=== PATIENT | male | born 1960 | race Caucasian/White ===

== ENCOUNTER 2019-12-25 09:55 | Observation (INO) ==
--- NOTE | 2019-12-25 10:13 | PROVIDER DOCUMENTATION ---
HPI-General Adult - General Chief Complaint: Weakness Stated Complaint: STROKE LIKE SYMTOMS Time Seen by Provider: 12/25/19 10:10 Source: patient, family Allergies/Adverse Reactions: Patient Allergies Allergy/AdvReac Type Severity Reaction Status Date / Time No Known Allergies Allergy Verified 12/25/19 10:41 Home Medications: Home Medication List Medication Instructions Recorded Confirmed Last Taken Type NK [No Home Medications] 12/25/19 12/25/19 Unknown History - History of Present Illness -Gen Adult Nature of Presenting Problems: 59yo male presents with CC of left sided non radiating chest pressure that has been going on since 5am this morning. The patient reports that the pain is not worse with exertion or deep breathing, and that the pain was associated with nausea. Originally the pt was sent by outside nurse for concerns of stroke like symptoms with HTN, weakness, and facial twitching, however the patient denies any focal weakness, vision changes, or slurred speech, and his main concern is his chest pain. The patient denies fevers or other pain. Review of Systems - Adult - REVIEW OF SYSTEMS - ADULT Constitutional: reports: no symptoms reported. denies: fever Eyes: reports: no symptoms reported. denies: blurred vision, eye pain Ears, Nose, Mouth & Throat: reports: no symptoms reported. denies: throat pain Cardiovascular: reports: chest pain Respiratory: reports: shortness of breath Gastrointestinal: reports: nausea Genitourinary: reports: no symptoms reported. denies: flank pain Musculoskeletal: reports: no symptoms reported. denies: back pain Integumentary: reports: no symptoms reported Neurological: reports: no symptoms reported. denies: headache/migraines, numbness Psychiatric: reports: no symptoms reported Endocrine: reports: no symptoms reported Hematologic/Lymphatic: reports: no symptoms reported, other (no bleeding) Allergic/Immunologic: reports: no symptoms reported, other (no swelling) Past History - Adult - PAST MEDICAL HISTORY-ADULT Review of Records: reports: Old Records Reviewed Cardiovascular: reports: denies history Respiratory: reports: denies history Gastrointestinal: reports: denies history Genitourinary: reports: denies history Musculoskeletal: reports: denies history Neurological: reports: denies history Psychiatric: reports: denies history Endocrine/Immune: reports: denies history - FAMILY HISTORY Family History: other ([place]) - SOCIAL HISTORY Smoking: cigarettes Substance Use: none/never Alcohol Use Frequency: never Physical Exam-General - CONSTITUTIONAL General Appearance: alert, mild distress - EYES Eyes: PERRL/EOMI. negative: conjuctival exudate, photophobia, scleral icterus - HEAD, EARS, NOSE, MOUTH & THROAT HENMT: normocephalic/atraumatic, moist mucous membranes, pharynx normal - NECK Neck: non-tender, supple - RESPIRATORY Respiratory: normal breath sounds, no respiratory distress - CARDIOVASCULAR Cardiovascular: regular rate, rhythm, no edema - GASTROINTESTINAL (ABDOMEN) Abdominal Exam: non tender, soft - MUSCULOSKELETAL Extremity: non-tender. negative: deformity, swelling - SKIN Integumentary: normal color, warm/dry. negative: cyanosis, diaphoresis, jaundice, pallor - NEUROLOGIC Neurologic: staffing account manager II-XII nml as tested. negative: motor weakness, sensory deficit - PSYCHIATRIC Psych/Mental Status: normal mood/affect, normal thought content, normal thought process Progress - PLAN OF CARE/RESULTS Progress/Plan/Lab Results: Vital Signs - 8 hr 12/25/19 10:00 Temperature 97.8 F Pulse Rate 85 Respiratory Rate 20 Blood Pressure 149/93 O2 Sat by Pulse Oximetry 98 Laboratory Results - last 24 hr 12/25/19 10:01 POC Glucose 85 Orders Category Date Time Status CT HEAD W/O CONTRAST [CT] Stat Exams 12/25/19 10:05 Taken Result Diagrams: 12/25/19 10:27 12/25/19 10:27 - REASSESSMENT Reassessment #1 Status: other (Pt with some improvement in his chest pain with nitro. Given suspcious nature of the chest pain and risk factors of smoking and family hx of [facility] as well as pt being overweight, discussed with family option for inpt stay with stress testing and they were agreeable to this plan. Discussed with the hospitalist team who agreed to admit the patient. Discussed again with family that it was an option to get stress testing outpt, however after discussion they wanted to stay and have test sooner. Pt to be admitted to the hospitalist team.) - EKG 1 Time of EKG reading by physician:: 10:18 EKG Read and Signed by:: David Galloway EKG Interpretation (*Must complete 3 of following elements*): Normal Rate: 79 Rhythm: sinus [place]: normal QRS: normal NE Interval: normal ST Wave: normal Prior EKG Comparison: no prior EKG - XRAY 1 XRAY: Bilateral XRAY Study: Chest Impression: See EMR Report (Patient: LEEANNA HAYNES Date: 12/25/19MR#: [id number] : 1960ADM Status: REG ERAcct#: [id number] Age/Sex: 5 0/MRoom/Bed: Loc: ED Ordering Physician: David Galloway MD Family Physician: Chan Plaza MD Reason for Procedure: Chest pain Signed EXAM: CHEST-1 VIEW HISTORY: Chest pain TECHNIQUE: Single view COMPARISON: None. FINDINGS: The lungs are well expanded. The heart is not enlarged. The vessels are not distended. There are no infiltrates. No effusion identified. There is a granuloma in the left lung. IMPRESSION: Negative exam. Electronically signed by Mark Flores 12/25/2019 10:45 AM 12/25/19 104 Interpreting Physician: Mark Flores MD Dictated Date/Time: 12/25/19 1045 cc: David Galloway MD; Chan Plaza MD) - CT/MRI 1 CT Study: Head Impression: See EMR Report ( Patient: LEEANNA HAYNES Date: 12/25/19MR#: [id number] : 1960ADM Status: PRE ERAcct#: [id number] Age/Sex: 59/MRoom/Bed: Loc: ED Ordering Physician: Hadley Welch MD Family Physician: Chan Plaza MD Reason for Procedure: stroke like sx Signed EXAM: CT HEAD W/O CONTRAST HISTORY: stroke like sx TECHNIQUE: CT head without contrast COMPARISON: None. FINDINGS: No parenchymal hemorrhage. No epidural or subdural hematoma. No subarachnoid hemorrhage. No mass identified on this noncontrasted exam. No hydrocephalus. No sinus opacification. IMPRESSION: No hemorrhage. Negative brain CT without contrast. This exam was performed using automated exposure control, adjustment of mA or kV according to patient size, and/or use of iterative reconstruction technique. Electronically signed by Mark Flores 12/25/2019 10:21 AM 12/25/19 1021 Interpreting P clintonsician: Mark Flores MD Dictated Date/Time: 12/25/19 1020 cc: Hadley Welch MD; Chan Plaza MD) Departure - Departure Date of Disposition Decision: 12/25/19 Time of Disposition Decision: 14:38 DIAGNOSIS: Chest pain Qualifiers: Chest pain type: unspecified Qualified Code(s): R07.9 - Chest pain, unspecified Disposition: ADMITTED INPATIENT 09 Certified Medical Emergency: Emergent Condition: Fair - Critical Care Note This patient required my direct & personal management of CC.: No Attestation - Physician/ JOE Attestation Patient care was provided by Advanced Practice Provider:: No The physician spent face to face time with patient:: Yes Advanced Practice Provider documentation review:: Supervising physician onsite and consulted in the evaluation and care of this patient. The physician did have a face to face encounter with the patient. - HEART Score HEART Score: History: Highly Suspicious HEART Score: ECG: Normal HEART Score: Age: 45-65 Years HEART Score: Risk Factors for Atherosclerotic Disease: 1 or 2 Risk Factors HEART Score: Troponin: < or = Normal Limit Total HEART Score:: 4
--- NOTE | 2019-12-25 10:24 | Diag Imaging Result Doc PS360 ---
EXAM: CT HEAD W/O CONTRAST HISTORY: stroke like sx TECHNIQUE: CT head without contrast COMPARISON: None. FINDINGS: No parenchymal hemorrhage. No epidural or subdural hematoma. No subarachnoid hemorrhage. No mass identified on this noncontrasted exam. No hydrocephalus. No sinus opacification. IMPRESSION: No hemorrhage. Negative brain CT without contrast. This exam was performed using automated exposure control, adjustment of mA or kV according to patient size, and/or use of iterative reconstruction technique. Electronically signed by Mark Flores 12/25/2019 10:21 AM
[2019-12-25] MEDS ORDERED: ASPIRIN PO ONE (10:25)
[2019-12-25] MEDS ORDERED: NITROGLYCERIN TOP ONE (10:26)
--- NOTE | 2019-12-25 10:47 | Diag Imaging Result Doc PS360 ---
EXAM: CHEST-1 VIEW HISTORY: Chest pain TECHNIQUE: Single view COMPARISON: None. FINDINGS: The lungs are well expanded. The heart is not enlarged. The vessels are not distended. There are no infiltrates. No effusion identified. There is a granuloma in the left lung. IMPRESSION: Negative exam. Electronically signed by Mark Flores 12/25/2019 10:45 AM
[2019-12-25 11:00] LABS: BASO# 0.03 X1000 (0.0-0.2); BASO% 0.3 % (0.0-0.8); EOS# 0.09 X1000 (0.0-0.7); HEMATOCRIT 46.5 % (42.0-52.0); HEMOGLOBIN 15.6 g/dL (14.0-18.0); IMM GRAN# 0.02 X1000 (0.0-0.04); IMM GRAN% 0.2 % (0.0-0.5); LYMPH% 18.6 % (20.5-51.1); MCH 29.7 PG (27-31); MCHC 33.5 g/dL (33-37); MCV 88.6 FL (81-99); MONO# 0.48 X1000 (0.11-0.59); MONO% 5.6 % (1.7-9.3); MPV 9.9 FL (7.4-10.4); NEUT# 6.37 X1000 (1.4-6.5); NEUT% 74.3 % (42.2-75.2); PLT 272 X1000 (130-400); RBC 5.25 XMIL (4.7-6.1); WBC 8.59 X1000 (4.8-10.8)
[2019-12-25 11:16] LABS: PROTIME 13.3 Seconds (11.0-16.0)
[2019-12-25 11:17] LABS: AGAP 11; ALB/GLOB RATIO 1.7; ALKALINE PHOSPHATASE 56 U/L (32-122); BUN 13 mg/dL (8-22); CALCIUM 8.7 mg/dL (8.8-10.2); CHLORIDE 106 mmol/L (98-107); CK PROFILE 97 U/L (24-204); COSMO 282; ESTIMATED GFR > 60; GLUCOSE 105 mg/dL (70-104); GOT 14 U/L (10-34); GPT 11 U/L (10-44); PTT 31.2 Seconds (22.3-41.8); SODIUM 141 mmol/L (136-145); TCO2 24 mmol/L (25-35); TOTAL PROTEIN 6.3 g/dL (6.3-8.3)
--- NOTE | 2019-12-25 11:47 | EKG Report ---
Test Performed on : 12/25/2019 10:17:09 AM Test Reason : Chest pain Blood Pressure : / mmHG Vent. Rate : 079 BPM Atrial Rate : 079 BPM P-R Int : 170 ms QRS Dur : 088 ms QT Int : 364 ms P-R-T Axes : 070 000 034 degrees QTc Int : 417 ms Normal sinus rhythm. Normal ECG When compared with ECG of 17-APR-2011 06:20, No significant change was found Unconfirmed Result
[2019-12-25] MEDS ORDERED: ZOFRAN IV PRN (14:41)
[2019-12-25] MEDS ORDERED: TYLENOL PO PRN (14:41)
--- NOTE | 2019-12-25 15:14 | HISTORY AND PHYSICAL ---
PRIMARY CARE PHYSICIAN: Dr. Chan Quintero. CHIEF COMPLAINT: Chest pain and nausea. HISTORY OF PRESENTING ILLNESS: This is a 59-year-old male who presents to [facility] with complaints of chest pain, pressure type, with some associated nausea that began around 5:30 this morning while he was at work. He denied any radiation of the pain. States that he had a stress test done about 10 years ago at his primary care physician's office which was normal. Had an echocardiogram done about a year ago but does not know the results of that. He has no past medical history, but when he presented, his blood pressure was 149/93. He is a pack a day smoker. His workup showed 2 sets of cardiac enzymes were negative. EKG with normal sinus rhythm at 79. So he will be admitted under observation for further evaluation and treatment for a stress test. PAST MEDICAL HISTORY: None. PAST SURGICAL HISTORY: Tonsillectomy and a tooth removal for denture placement. FAMILY HISTORY: Positive for an DC. SOCIAL HISTORY: Currently lives with his . Smokes 1 pack of cigarettes a day and has done so for 40+ years. Denies any alcohol or illicit drug use. ALLERGIES: He has no known drug allergies. HOME MEDICATIONS: He does not take any medications on a routine basis. LABORATORY DATA: Showed a white blood cell count of 8.59, hemoglobin 15.6, hematocrit 46.5, platelets 272,000. PT and INR of 13.3 and 1.00. Sodium 141, potassium 4, chloride 106, CO2 24, BUN of 13, creatinine of 1, glucose 105. Cardiac enzymes were negative x2 sets. ProBNP of 109. EKG showed normal sinus rhythm at 79. Chest x-ray showed a negative exam. REVIEW OF SYSTEMS: He denied any fever, chills, blurred vision, dizziness. He had chest pain, nonradiating. Denied any shortness of breath, cough. He denied any abdominal pain. He did have some mild nausea. Denied any constipation, diarrhea, burning or hurting with urination. PHYSICAL EXAMINATION: VITAL SIGNS: On arrival he had a temperature of 97.8 degrees, pulse 85, respirations 20, blood pressure 149/93, saturating 98% on room air. GENERAL: This is a 59-year-old male who is lying in the bed and answers questions appropriately. HENT: Normocephalic, atraumatic. Normal ENT inspection. Oropharynx and nares are clear. EYES: Pupils are equal, round, reactive to light and accommodation. Extraocular movements are intact. NECK: Normal inspection. Normal range of motion. LUNGS: Clear to auscultation bilaterally with equal lung expansion and chest wall movement. HEART: With regular rate and rhythm. No murmurs, rubs, or gallops. ABDOMEN: Soft, nontender, nondistended. Bowel sounds are present x4 quadrants. MUSCULOSKELETAL: He had 5/5 strength x4 extremities. NEUROLOGICAL: The cranial nerves 2-12 appear grossly intact. ASSESSMENT: 1. Chest pain. 2. Elevated blood pressure without a diagnosis of hypertension. 3. Tobacco abuse. PLAN: He will be admitted to the medical unit, placed on telemetry, O2 per protocol, healthy heart diet. He will be n.p.o. after midnight. We will do a myocardial perfusion scan in the a.m. Check a lipid profile. Do 1 more set of cardiac enzymes to complete a series of 3. Give him a nicotine patch 21 mg transdermally daily, aspirin 325 mg p.o. daily, Lovenox 40 mg subcutaneous q.24 for DVT prophylaxis, Prilosec 20 mg p.o. daily. Further orders after seen by attending. Dictated by SALUD Johnson for Morris Prieto MD Addendum: Patient is seen and examined by myself. Agree with SALUD note. It reflects my assessment and plan. Patient is being admitted to hospital for chest pain. Workup under progress. Will follow results of Lexiscan. cc: SALUD Johnson MD Alexander Bryant McQueen MTDD
[2019-12-25] MEDS: LOVENOX SUBQ SCH (15:15)
[2019-12-25] MEDS: NICODERM PATCH TD SCH (15:15)
[2019-12-26] MEDS ORDERED: PRILOSEC PO SCH (07:00)
--- NOTE | 2019-12-26 07:36 | EKG Report ---
Test Performed on : 12/26/2019 07:23:37 AM Test Reason : Chest Pain Blood Pressure : / mmHG Vent. Rate : 055 BPM Atrial Rate : 055 BPM P-R Int : 190 ms QRS Dur : 092 ms QT Int : 418 ms P-R-T Axes : 055 034 045 degrees QTc Int : 399 ms Sinus bradycardia. Otherwise normal ECG When compared with ECG of 25-DEC-2019 10:17, (Unconfirmed) No significant change was found Confirmed by Ganesh Bolton MD ([id number]) on 12/26/2019 9:07:49 PM
[2019-12-26] MEDS ORDERED: LEXISCAN ONE (08:33)
[2019-12-26] MEDS ORDERED: ASPIRIN PO SCH (09:00)
[2019-12-26] MEDS: NICODERM PATCH TD SCH (10:52)
--- NOTE | 2019-12-26 13:47 | Diag Imaging Result Document ---
PROCEDURE NAME: MYOCARDIAL PERF SCAN, STR/REST - 12/26/2019 INDICATION: Chest pain. PROCEDURES PERFORMED: 1. Crow protocol stress. 2. One-day stress/rest myocardial perfusion imaging (rest dose 14.1 millicuries, stress dose 36.8 mCi). CROW PROTOCOL STRESS RESULTS: 1. Baseline EKG shows sinus rhythm. 2. Patient exercised for a total of 9 minutes 31 seconds, achieving peak heart rate of 142 which was 88% of age predicted max. He achieved 10.9 METS, early stage IV of the Crow protocol. Exercise capacity was 114% of age and sex-predicted exercise capacity. 3. Somewhat hypertensive response to exercise. 4. The test was terminated due to fatigue. 5. No anginal complaints occurred during the course of the study. 6. No evidence of ischemic-related EKG changes or significant arrhythmias occurred during the course of the study. PERFUSION IMAGING RESULTS: 1. No evidence of abnormal extracardiac uptake. 2. TID ratio 0.80. 3. Perfusion imaging demonstrates essentially no evidence of ischemic changes. There is some very mild inferior soft tissue attenuation artifact which appears to have intact wall motion. This appears to represent a low-risk study. 4. Normal ejection fraction of 63%. The end-diastolic volume is 94, end-systolic volume is 35. Normal wall motion. cc: MD [place] CRNP
[2019-12-26] MEDS: LOVENOX SUBQ SCH (14:16)
[2019-12-26 15:39] VITALS: BP 150/92
--- NOTE | 2019-12-26 16:11 | Diag Imaging Result Doc PS360 ---
EXAM: CT THORAX W/O CONTRAST INDICATION: chest pain TECHNIQUE: This exam was performed using automated exposure control, adjustment of mA or kV according to patient size, and/or use of iterative reconstruction technique. COMPARISON: None. FINDINGS: There is a calcified granuloma in the left lower lobe. There is a 3 mm pleural-based noncalcified nodule in the right middle lobe on image 71 of series 3 that statistically very likely represents a noncalcified granuloma. The lungs are clear, otherwise. No airspace consolidations are appreciated. There is no pleural fluid collection and no pneumothorax. There are calcified left hilar lymph nodes indicating prior granulomatous disease. There is no cardiomegaly. There is no evidence of significant lymphadenopathy. There are no abnormal mediastinal fluid collections. Limited views of the upper abdomen are essentially unremarkable. There is no evidence of acute osseous abnormality. IMPRESSION: No evidence of acute pathology by CT. Electronically signed by Viraj Aceves 12/26/2019 4:09 PM
--- NOTE | 2019-12-26 22:42 | DISCHARGE SUMMARY ---
ADMISSION DATE: 12/25/2019 DISCHARGE DATE: 12/26/2019 DISCHARGE DIAGNOSES: 1. Chest pain, resolved. 2. Acute coronary syndrome ruled out. 3. Elevated blood pressure. 4. Tobacco abuse. CONSULTATIONS: None. PROCEDURES: 1. Head CT done on admission showed no hemorrhage. Negative brain CT without contrast. 2. Chest x-ray was negative. 3. Myocardial perfusion scan, nuclear medicine, showed perfusion imaging demonstrated essentially no evidence of ischemic changes. Some very mild inferior soft tissue attenuation artifact which appears to have an intact wall motion. This appears to represent low risk study with normal ejection fraction of 63% 4. Chest CT showed no evidence of acute pathology by CT. HOSPITAL COURSE: This is a 59-year-old male, who presented to the emergency department complaining of chest pain, pressure type with some associated nausea that began around 5:30 on the date of admission. The patient reports that he had a stress test done 10 years ago. Patient has only family history of coronary artery disease with no other risk factors, although blood pressure was found to be slightly elevated in the ER. So, the ER doctor, Dr. Layne, insisted on admitting this patient for stress test. We did that and we ordered the tests as we mentioned above. All the tests, including CT of the chest and a Lexiscan scan nuclear medicine returned negative. The patient is doing fine. Actually, the pain in the chest is reproducible by palpation. So, I think this is musculoskeletal pain. We are going to provide Flexeril and ibuprofen for this patient. I will recommend to see his primary care physician in a week. DISCHARGE PHYSICAL EXAMINATION: Vital Signs: Temperature 98 degrees, heart rate 61, respiratory 20, blood pressure 150/92, O2 saturation 100% on room air. General: This is a 59-year-old male, lying in bed, in no acute distress. Cardiovascular exam: S1, S2 heard. No murmurs, gallops, or rubs. Regular rate and rhythm. Respiratory exam: Clear bilaterally to auscultation. No work of breathing or using accessory muscles. Abdomen: Soft, nontender to palpation. Bowel sounds present. No organomegaly. Extremities: No clubbing, cyanosis, or edema. Peripheral pulses present in both legs. Neurological: The patient is alert and oriented x3. Moves 4 extremities. DISCHARGE DISPOSITION: Home to self-care. DISCHARGE MEDICATIONS: 1. Flexeril 1 tablet p.o. b.i.d. p.r.n. to muscle pain. 2. Ibuprofen 800 mg 1 tablet p.o. 3 times per day p.r.n. for chest pain. FOLLOWUP: Follow up with his primary care physician in a week. cc: Morris Prieto MD
== END 2019-12-26 17:59 | disposition home or self-care (01) ==
LOC: ED 09:55 → 3N 09:55
PROVIDERS: ATTEND Internal Medicine